=== PATIENT | male | born 1940 | race Caucasian/White ===

== ENCOUNTER 2018-09-21 19:45 | Emergency (ER) | payer MEDICARE ==
[2018-09-21] MEDS ORDERED: Acetaminophen/Codeine 30-300mg Tablet ONE (20:02)
[2018-09-21] MEDS ORDERED: Ketorolac Tromethamine 60 MG/2 ML VIAL ONE (20:02)
[2018-09-21] MEDS ORDERED: Cyclobenzaprine 10 MG TAB ONE (20:02)
== END 2018-09-21 20:17 | disposition home or self-care (01) ==
LOC: BURERS 19:45
DX: M54.5 Low back pain (principal); I10 Essential (primary) hypertension; I48.91 Unspecified atrial fibrillation; Z79.01 Long term (current) use of anticoagulants; Z79.899 Other long term (current) drug therapy; E78.5 Hyperlipidemia, unspecified
CPT/HCPCS: 96372; J1885